=== PATIENT | female | born 1990 | race Caucasian/White ===

== ENCOUNTER 2019-10-21 10:02 | Emergency (ER) | payer OTHER, SELFPAY ==
[2019-10-21 10:56] VITALS: BP 108/69; PULSE 98; RESP 16; TEMP 37.4; O2SAT 99
--- NOTE | 2019-10-21 12:09 | ED.GENADULT ---
HPI - General Adult General Chief complaint: Upper Respiratory Infection Stated complaint: Cough/Congestion Time Seen by Provider: 10/21/19 12:09 Source: patient Mode of arrival: ambulatory Limitations: no limitations History of Present Illness HPI narrative: 28-year-old female patient presents to the [facility] with complaints of cold symptoms for the past 5 days. Patient states she has had fevers as high as 102 that she is no longer running at this time. Patient states she has had body aches, chills, runny nose, congestion. Patient states that her most bothersome symptom today is that she has had some cough and shortness of breath. Patient states that she did get a flu shot this year. Patient states that she is an active smoker of cigarettes. Patient states that there has been a lot of people at work that have been out recently because of the flu. Patient denies prior or breast-feeding at this time. Patient states she has been taking [id number] cough cold medication as well as some Robitussin without relief. Related Data Allergies Allergy/AdvReac Type Severity Reaction Status Date / Time No Known Allergies Allergy Verified 10/21/19 11:08 Review of Systems Review of Systems: Narrative: CONSTITUTIONAL: Positive subjective fever, body aches, chills, and sweats. EYES: Denies visual changes, redness, or discharge. ENT: Positive rhinorrhea, congestion, denies sore throat, or otalgia. CARDIOVASCULAR: Denies chest pain, palpitations, or edema. RESPIRATORY: Positive cough with dyspnea. GASTROINTESTINAL: Denies abdominal pain, nausea, vomiting, or diarrhea. GENITOURINARY: Denies dysuria or hematuria. SKIN: Denies rash or itching. MUSCULOSKELETAL: Denies back pain, joint pain, or myalgia. NEUROLOGIC: Denies headache, numbness, or weakness. PSYCHIATRIC: Denies anxiety or depression. PMFSH Comments At the time of my signature I agree with nursing past medical history, surgical, social, and family history. There is no relevant family history pertinent to the presenting complaint. Exam Narrative: Exam Narrative: GENERAL: ill-appearing, well-nourished, and in no acute distress. HEAD: Normocephalic, atraumatic. No tenderness noted to frontal maxillary sinuses on palpation. EYES: PERRLA and EOMI. ENT: Nares with erythema and edema noted bilaterally, no rhinorrhea or epistaxis. Mucous membranes moist. Posterior pharynx with no erythema, tonsillar margin, exudates or lesions present. Bilateral TMs are clear with no erythema or foreign bodies in the canal. NECK: Supple. No lymphadenopathy CHEST: Patient has some rhonchi wheezing noted to the upper lobes as well as some rhonchi noted to bilateral lower lobes on auscultation. No respiratory distress. Patient does have a continuous cough noted during exam. HEART: Regular rate and rhythm. No murmur heard. Normal peripheral pulses. ABDOMEN: Soft, nontender, nondistended, normal active bowel sounds. EXTREMITIES: Normal range of motion. No edema. SKIN: Warm, dry, no rash. NEURO: No focal deficits. Alert and oriented x3. Course Reevaluation(s) Reevaluation #1: Reevaluated patient after her DuoNeb was completed. Patient states she is feeling much better and feels like she can take a bigger deeper breath without coughing. Patient's lung sounds are clear to bilateral upper and lower lobes. Discussed with patient that we are going to discharge her today with an albuterol inhaler and oral steroids for the coughing and respiratory symptoms. Discussed with patient that she should take Tylenol and ibuprofen as needed for any body aches pains or fevers as well as [id number] antihistamines and nasal steroids for her other symptoms. Patient verbalized understanding denies any other questions or concerns. Date: 10/21/19 Time: 12:56 Vital Signs Vital signs: Vital Signs Temperature 37.4 C 10/21/19 10:56 Pulse Rate 98 10/21/19 10:56 Respiratory Rate 16 10/21/19 10:56 Blood Pr
[2019-10-21] MEDS: IPRATROPIUM BR 0.02% INH SOLN 0.5 MG/2.5 ML VIAL INHALATION (12:18)
[2019-10-21] MEDS: ALBUTEROL SULFATE NEB 2.5 MG/3 ML INH INHALATION (12:18)
[2019-10-21 12:40] VITALS: PULSE 88; RESP 14; O2SAT 99
== END 2019-10-21 13:00 | disposition home or self-care (01) ==
PROVIDERS: Emergency Provider Nurse Practitioner Family
DX: J06.9 Acute upper respiratory infection, unspecified (principal)
CPT/HCPCS: 94640; 99213; G0463

== ENCOUNTER 2021-05-13 12:05 | Emergency (ER) | payer OTHER, SELFPAY ==
[2021-05-13 12:15] VITALS: BP 116/77; PULSE 104; RESP 16; TEMP 37.3; O2SAT 100
[2021-05-13 12:17] VITALS: BP 116/77; PULSE 104; RESP 16; TEMP 37.3; O2SAT 100
--- NOTE | 2021-05-13 12:17 | ED.GENADULT ---
HPI - General Adult General Chief complaint: Unspecified Stated complaint: sharp pains under left breast Time Seen by Provider: 05/13/21 12:20 Source: patient and RN notes reviewed Mode of arrival: ambulatory Limitations: no limitations History of Present Illness HPI narrative: 30-year-old female presents with 4-day history of pain in the left breast area. Reports tenderness to touch. Denies warmth, redness, fever, body aches. Denies injury or trauma. Denies rash, open skin. Denies nipple discharge. She denies worsening pain with deep breathing or coughing. Pain is not made worse by bending, twisting, moving the left arm. She denies chest pain, shortness of breath, back pain, sweating. Denies intervention MD complaint: Chest wall pain Related Data Allergies Allergy/AdvReac Type Severity Reaction Status Date / Time No Known Allergies Allergy Verified 05/13/21 12:16 Review of Systems Review of Systems: CONSTITUTIONAL: Denies malaise, chills, sweats, or fever. CARDIOVASCULAR: Denies chest pain, palpitations, or edema. RESPIRATORY: Denies cough or dyspnea. GASTROINTESTINAL: Denies abdominal pain, nausea, vomiting, diarrhea SKIN: Denies rash or itching. Denies open skin, redness, bruising, swelling. Denies breast redness, warmth. MUSCULOSKELETAL: Denies back pain or myalgia. Reports left anterior chest wall pain, tender to touch. All systems reviewed & are unremarkable except as noted in HPI and below PMFSH Comments At time of signature, agree with nursing past medical, surgical, social and family history. There is no relevant family history pertinent to the presenting complaint Exam Narrative: GENERAL: Well-appearing, well-nourished, and in no acute distress. HEAD: Normocephalic, atraumatic. EYES: PERRLA, conjunctivae clear ENT: Mucous membranes moist. NECK: Supple. CHEST: No respiratory distress. Clear to auscultation. No bony deformities, no asymmetry. Speaks in full sentences. No breast tenderness. Tenderness when touching the in the anterior mid rib area beneath the left breast HEART: Regular rate and rhythm. No murmur heard. Normal peripheral pulses. SKIN: Warm, dry, no visible rash. No chest wall erythema, ecchymosis, open skin. NEURO: Alert and oriented x3. PSYCH: Normal mood and affect Course Course Emergency Course: Patient following up with primary care provider for further evaluation. Discussed potential for possible shingles, instructed patient for symptoms to monitor and return if rash develops. Patient is aware of diagnosis, understands and agrees to treatment plan. Anticipatory guidance given. Patient agrees to follow-up as directed and is aware of reasons to seek care at the emergency department. Portions of this record may have been created with voice recognition software Vital Signs Vital signs: Vital Signs Temperature 99.2 F 05/13/21 12:15 Pulse Rate 104 H 05/13/21 12:15 Respiratory Rate 16 05/13/21 12:15 Blood Pressure 116/77 05/13/21 12:15 Pulse Oximetry 100 05/13/21 12:15 Temperature 99.2 F 05/13/21 12:17 Pulse Rate 104 H 05/13/21 12:17 Respiratory Rate 16 05/13/21 12:17 Blood Pressure 116/77 05/13/21 12:17 Pulse Oximetry 100 05/13/21 12:17 Reviewed. Medical Decision Making MDM Narrative Medical decision making narrative: Exam findings show no acute concerns or changes; patient is non-toxic appearing and is in no distress. Patient is appropriate for outpatient treatment and follow-up. Differential Diagnosis Differential Diagnosis: Chest contusion, rib contusion, rib fracture, shingles, cardiac event, pneumonia, pleurisy, costochondritis, mastitis Vital Signs Vital Signs: Vital Signs Temperature 99.2 F 05/13/21 12:15 Pulse Rate 104 H 05/13/21 12:15 Respiratory Rate 16 05/13/21 12:15 Blood Pressure 116/77 05/13/21 12:15 Pulse Oximetry 100 05/13/21 12:15 Temperature 99.2 F 05/13/21 12:17 Pulse Rate 104 H 05/13/21 12:17 R
== END 2021-05-13 12:33 | disposition home or self-care (01) ==
PROVIDERS: Emergency Provider Nurse Practitioner
DX: R07.89 Other chest pain (principal)
CPT/HCPCS: 99213; G0463

== ENCOUNTER 2024-10-26 14:09 | Emergency (ER) | payer OTHER, SELFPAY ==
--- NOTE | ~2024-10-26 | XR_ITS ---
EXAMINATION: XR finger 3rd RT min 2V DATE: 10/26/2024 14:28 INDICATION: Pain at the right third proximal interphalangeal joint post injury TECHNIQUE: Dorsal palmar, lateral and 2 oblique views of the right third digit were obtained COMPARISON: None FINDINGS: Alignment is normal. No fracture. Joint spaces are normal. Soft tissue swelling about the third proxi mal interphalangeal joint. IMPRESSION: 1. No osseous abnormality. Reviewed, dictated and finalized at location B. RIAL SPREADER IMPRESSION: 1. No osseous abnormality.
[2024-10-26 14:23] VITALS: BP 109/73; PULSE 80; RESP 16; TEMP 36.8; O2SAT 100
--- NOTE | 2024-10-26 14:33 | ED_ITS ---
HPI - General Adult General Chief complaint: Extremity Injury, Upper Stated complaint: Finger Injury Source: patient Mode of arrival: ambulatory Limitations: no limitations History of Present Illness HPI narrative: Pt presents for evaluation of pain in the third digit of the right hand. Symptom onset this morning. She got her leg stuck in her bedding while getting up out of bed. She fell and hit her right hand against the ground in the process. I rash she experiences a pressure sensation in the 3rd digit. However she accidentally bumps the digit she has severe pain that she rates 10/10. She is right hand dominant. She tried taking tylenol for her symptoms. Related Data Allergies Allergy/AdvReac Type Severity Reaction Status Date / Time No Known Allergies Allergy Verified 05/13/21 12:16 Review of Systems Review of Systems: CONSTITUTIONAL: Denies fever, chills, or sweats. EYES: Denies visual changes, redness, or discharge. ENT: Denies rhinorrhea, congestion, sore throat, or otalgia. CARDIOVASCULAR: Denies chest pain, palpitations, or edema. RESPIRATORY: Denies cough or dyspnea. GASTROINTESTINAL: Denies abdominal pain, nausea, vomiting, or diarrhea. GENITOURINARY: Denies dysuria or hematuria. SKIN: Denies rash or itching. MUSCULOSKELETAL: Reports pain in the third digit of the right hand NEUROLOGIC: Denies headache, numbness, dizziness, or weakness. PSYCHIATRIC: Denies anxiety or depression. PMFSH Past Medical History Medical History No pertinent past medical history Surgical History Surgical History No pertinent past surgical history Family History Family History Mother Family history non-contributory Social History Social History Smoking status: Current every day smoker Tobacco type: e-cigarettes/vaping Gender identity (if verbalized by the patient): Female Spiritual care concerns: No Exam Narrative: GENERAL: Well-appearing, well-nourished, and in no acute distress. HEAD: Normocephalic, atraumatic. EYES: PERRLA and EOMI. ENT: Nares clear, no rhinorrhea or epistaxis. Mucous membranes moist. Oropharynx without tonsillar hypertrophy exudate or other lesions. Bilateral TMs pearly bateman nonbulging NECK: Supple. No adenopathy or masses. No carotid bruits or JVD CHEST: Clear to auscultation. No respiratory distress. No wheezes rales or rhonchi HEART: Regular rate and rhythm. No murmur heard. Normal peripheral pulses. ABDOMEN: Soft, nontender, nondistended, normal active bowel sounds. EXTREMITIES: 3/5 hand qualitative field coordinator strength on the right. 5/5 hand qualitative field coordinator strength on left. Tenderness present in proximal phalanx, PIP joint and middle phalanx of the 3rd digit of the right hand SKIN: Warm, dry, no rash. NEURO: No focal deficits. Alert and oriented x3. PSYCH: Normal mood and affect. Course Course Emergency Course: This is a 33 year old female who presented for pain in the 3rd digit of right hand. X ray was negative for fracture. Provided with finger splint. Advised on RICE therapy. NSAIDs for pain. Follow up with primary provider. Go to the ER for worsening symptoms. Pt in agreement with plan of care. Level of Care: Express Care Visit Vital Signs Vital signs: Vital Signs Temperature 36.8 C 10/26/24 14:23 Pulse Rate 80 10/26/24 14:23 Respiratory Rate 16 10/26/24 14:23 Blood Pressure 109/73 10/26/24 14:23 Pulse Oximetry 100 10/26/24 14:23 Oxygen Delivery Room Air 10/26/24 14:23 Temperature 36.8 C 10/26/24 14:23 Pulse Rate 80 10/26/24 14:23 Respiratory Rate 16 10/26/24 14:23 Blood Pressure 109/73 10/26/24 14:23 Pulse Oximetry 100 10/26/24 14:23 Oxygen Delivery Room Air 10/26/24 14:23 Medical Decision Making Vital Signs Vital Signs: Vital Signs Temperature 36.8 C 10/26/24 14:23 Pulse Rate 80 10/26/24 14:23 Respiratory Rate 16 10/26/24 14:23 Blood Pressure 109/73 10/26/24 14:23 Pulse Oximetry 100 10/26/24 14:23 Oxygen Delivery Room Air 10/26/24 14:23 Temperature 36.8 C 10/26/24 14:23 Pulse Rate 80 10/26/24 14:23 Respiratory Rate 16 10/26/24 14:23 Blood Pressure 109/73 10/26/24 14:23 Pulse Oximetry 100 10/26/24 14:23 Oxygen Delivery Room Air 10/26/24 14:23 Imaging Data Radiologist's impression: EXAMINATION: XR finger 3rd RT min 2V DATE: 10/26/2024 14:28 INDICATION: Pain at the right third proximal interphalangeal joint post injury TECHNIQUE: Dorsal palmar, lateral and 2 oblique views of the right third digit were obtained COMPARISON: None FINDINGS: Alignment is normal. No fracture. Joint spaces are normal. Soft tissue swelling about the third proximal interphalangeal joint. IMPRESSION: 1. No osseous abnormality. Discharge Plan Discharge Clinical Impression: Contusion of right middle finger Patient Disposition: Home, Self-Care Condition: Stable Instructions: Antibiotic Form, Contusion in Adults (ED) Patient Language: Bengali Prescriptions: No Action ibuprofen 800 mg tablet 800 mg PO Q6H PRN (Reason: pain) Qty: 30 0RF albuterol sulfate [Ventolin HFA] 90 mcg/actuation HFA aerosol inhaler 2 puff INHALATION .Q4 hours PRN (Reason: cough) Qty: 18 0RF Follow-up/Referrals: Georgia Fraga DO [Physician] - Time of Disposition: 14:53
--- OUTSIDE RECORDS SUMMARY | 2024-10-26 16:21 | XMS_ITS | Clinical Summary ---
Author Organization [facility] Address [address] [place] [address] Care Team Providers Care Folder Hand Name Role Phone Unknown, Notinfile Primary Care Provider Unavail able Allergies No known active allergies Medications ibuprofen (ADVIL,MOTRIN) 600 mg tablet Take 1 tablet (600 mg total) by mouth every 6 (six) hours as needed 0 05/22/2018 Active HYDROcodone-eduardo taminophen (NORCO) 5-325 mg per tabletIndicatio ns:Pain Take 1-2 tablets by mouth every 4 (four) hours as needed for pain. 28 tablet 07/02/2018 Active ibuprofen (ADVIL,MOTRIN) 600 mg tablet Take 1 tablet (600 mg total) by mouth every 6 (six) hours as needed for pain. 30 tablet 2 07/02/2018 Active Active Problems No known active problems Social History Tobacco Use Types Packs/Day Years Used Date Smoking Tobacco: Every Day Cigarettes Smokeless Tobacco: Never Tobacco Cessation:Ready to Q uit: Yes; Counseling Given: Yes Alcohol Use Standard Drinks/Week Comments No 0 (1 standard drink = 0.6 oz pur e alcohol) Comments No Sex and Gender Information Value Date Recorded Sex Assigned at Not on file Legal Sex Female 7:20 PM [employer] Gender Identity Not on file Sexual Orientation Not on file Obstetrics History Last Filed Vital Signs Vital Sign Reading Time Taken Comments Blood Pressure 134/83 04/12/2024 3:24 PM CDT Pulse 61 04/12/2024 3:24 PM CDT Temperature 38.7 C (101.7 F) 07/04/2022 4:27 PM CDT Respiratory Rate 24 07/04/2022 4:30 PM CDT Oxygen Saturation 100% 07/04/2022 4:27 PM CDT Inhaled Oxygen Concentration - - Weight 74.4 kg (164 lb) 04/12/2024 3:24 PM CDT Height 167.6 cm (5' 6 ) 04/12/2024 3:24 PM CDT Body Mass Index 26.47 04/12/2024 3:24 PM CDT Plan of Treatment Health Maintenance Due Date Last Done Comments Cervical Cancer Screening 1991 Depression Screening 1991 Hepatitis C Screening 1991 Varicella Vaccines (1 of 2 - 13+ 2-dose series) 12/14/2004 Hepatitis B Screening 12/14/2009 Regular Well Visit/Exam 18-64 12/14/2009 Pneumococcal vaccine <65 (2 of 2 - PCV) 02/02/2015 02/02/2014 DTaP/Tdap/Td Vaccine (2 - Td or Tdap) 02/01/2024 01/31/2014 Influenza Vaccine (#1) 2024 HPV Vaccines Aged Out No longer eligi ble based on patient's age to complete this topic Insurance [facility] Care Teams Folder Hand Relationship Specialty Start Date End Date Unknown, Notinfile PCP - General 04/07/24
--- OUTSIDE RECORDS SUMMARY | 2024-10-26 16:21 | XMS_ITS | Referral Summary ---
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
== END 2024-10-26 14:57 | disposition home or self-care (01) ==
PROVIDERS: Emergency Provider Nurse Practitioner
DX: S60.031A Contusion of right middle finger without damage to nail, initial encounter (principal); W01.0XXA Fall on same level from slipping, tripping and stumbling without subsequent striking against object, initial encounter
CPT/HCPCS: 29130; 73140; 99213; G0463

== ENCOUNTER 2025-01-25 17:46 | Emergency (ER) | payer OTHER, SELFPAY ==
--- NOTE | ~2025-01-25 | XR_ITS ---
XR finger 3rd RT min 2V Ordering provider: Derrick Nagy APRN History: . finger swelling/pain . Comparison: None. FINDINGS: BONES: No acute fracture or dislocation. JOINT SPACES: Normal. SOFT TISSUES: Normal. IMPRESSION: No definite acute osseous abnormality. Reviewed, dictated and finalized at location A.
--- OUTSIDE RECORDS SUMMARY | 2025-01-25 17:49 | XMS_ITS | Clinical Summary ---
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 Care Teams Councillor [employer] Relationship Specialty Start Date End Date Unknown, Notinfile PCP - General 04/07/24
--- OUTSIDE RECORDS SUMMARY | 2025-01-25 17:49 | XMS_ITS | Referral Summary ---
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
[2025-01-25 17:52] VITALS: BP 136/87; PULSE 67; RESP 20; TEMP 36.7; O2SAT 100
--- NOTE | 2025-01-25 18:01 | ED.UPPEXIN ---
HPI - Extremity Injury (Upper) General Chief Complaint: Extremity Injury, Upper Stated Complaint: rt middle finger pain Time Seen by Provider: 01/25/25 18:00 Source: patient Mode of arrival: ambulatory Limitations: no limitations History of Present Illness HPI narrative: Tara is a 34-year-old female patient presenting to the clinic today with complaints of right 3rd finger pain. She reports she injured her finger when she fell approximately 8 weeks ago and thought she jammed the finger. Was seen the day after she fell and an x-ray was completed and was negative. Is reporting pain to the radial side of the PIP joint Related Data Allergies Allergy/AdvReac Type Severity Reaction Status Date / Time No Known Allergies Allergy Verified 05/13/21 12:16 Review of Systems Review of Systems: Pertinent positives per HPI. Patient denies any fever, chills, rash, headache, visual changes, dizziness, cough, runny nose, sore throat, shortness of breath, chest pain, palpitations, nausea, vomiting, diarrhea, constipation, abdominal pain, or any urinary issues. PMFSH Past Medical History Medical History No pertinent past medical history Surgical History Surgical History No pertinent past surgical history Family History Family History Mother Family history non-contributory Social History Social History Smoking status: Current every day smoker Tobacco type: e-cigarettes/vaping Gender identity (if verbalized by the patient): Female Spiritual care concerns: No Comments At the time of my signature, I reviewed and agree with the nursing past medical, surgical, social, and family history. There is no relevant family history pertinent to the patient complaint. Exam Narrative: General: Well-developed, well nourished, in no apparent distress Head: Normocephalic, atraumatic. Cardio: Regular rate and rhythm, s1 and s2 normal, no murmur appreciated. Resp: Clear to auscultation bilaterally, no rhonchi, rales, wheezing or rubs. Musculoskeletal: No deformity, mild swelling noted to the PIP joint of the right 3rd finger, tender to palpation over the lateral aspect of the right 3rd PIP joint, grossly normal range of motion, muscle strength strong and equal, peripheral pulse strong, no edema, no cyanosis, normal gait and station Course Course Emergency Course: Portions of this record may have been created with voice recognition software. Level of Care: Express Care Visit Vital Signs Vital signs: Vital Signs Temperature 36.7 C 01/25/25 17:52 Pulse Rate 67 01/25/25 17:52 Respiratory Rate 20 01/25/25 17:52 Blood Pressure 136/87 01/25/25 17:52 Pulse Oximetry 100 01/25/25 17:52 Oxygen Delivery Room Air 01/25/25 17:52 Temperature 36.7 C 01/25/25 17:52 Pulse Rate 67 01/25/25 17:52 Respiratory Rate 20 01/25/25 17:52 Blood Pressure 136/87 01/25/25 17:52 Pulse Oximetry 100 01/25/25 17:52 Oxygen Delivery Room Air 01/25/25 17:52 Vital signs reviewed MDM - Extremity Injury (Upper) MDM Narrative Medical decision making narrative: At the time of visit patient is resting comfortably on the exam table. Patient appears to be nontoxic. Diagnostics: X-ray of the right 3rd finger was performed and was negative for any acute fracture or malalignment. Plan: I suspect patient has right finger pain-status post fall injury Supportive measures were discussed with the patient and they voiced understanding discharge instructions and agrees to treatment plan. Return precautions reviewed Differential Diagnosis Differential diagnosis: Likely finger sprain, dislocation of finger and other (Finger fracture, tendon injury) Imaging Data Radiologist's impression: ITS Impressions Finger X-Ray 01/25/25 18:14 IMPRESSION: No definite acute osseous abnormality. Discharge Plan Discharge Clinical Impression: Finger pain, right Patient Disposition: Home Condition: Stable Instructions: Antibiotic Form, Finger Sprain (ED), Swollen Joint (ED) Additional Instructions: X-rays negative for any definitive acute osseous abnormality Rest, ice, and elevate Tylenol/motrin for pain as discussed. Follow up with your PCP if symptoms persist more than 1 week. Patient Language: Omani Follow-up/Referrals: aMureen Sotomayor MD [Physician] - 1 Day (Right 3rd finger lateral PIP joint pain-injured approximately 8 weeks ago-no acute fracture) PHYSICIAN,OVERLOCK SLEEVE SETTER [Primary Care Provider] - Time of Disposition: 18:25 Quality NIHSS Nursing Documentation ED NIHSS nursing documentation: reviewed/agree
== END 2025-01-25 18:30 | disposition home or self-care (01) ==
PROVIDERS: Emergency Provider Nurse Practitioner Family
DX: M79.644 Pain in right finger(s) (principal); F17.290 Nicotine dependence, other tobacco product, uncomplicated
CPT/HCPCS: 73140; 99213; G0463

== ENCOUNTER 2025-06-09 19:31 | Emergency (ER) | payer OTHER, SELFPAY ==
--- NOTE | 2025-06-09 19:32 | ED.URI ---
HPI - URI/Sore Throat General Chief Complaint: Upper Respiratory Infection Stated Complaint: throat Time Seen by Provider: 06/09/25 19:48 Source: patient, RN notes reviewed and old records reviewed Mode of arrival: ambulatory Limitations: no limitations History of Present Illness HPI Narrative: 34-year-old female presents to the [facility] with a sore throat that started today. Started not feeling well yesterday. Had taken some Tylenol and ibuprofen. Has had some sinus drainage, postnasal drainage. Related Data Home Medications ?Medication ?Instructions ?Recorded ?Confirmed ?Last Taken ?Type No Home Medications 06/09/25 06/09/25 Unknown History Allergies Allergy/AdvReac Type Severity Reaction Status Date / Time No Known Allergies Allergy Verified 06/09/25 19:36 Review of Systems Review of Systems: All systems reviewed & are unremarkable except as noted in HPI and below Constitutional: Constitutional: Reports no additional constitutional complaints ENT: Reports as per HPI Cardiovascular: Cardiovascular: Reports no additional cardiovascular complaints, Denies chest pain and Denies dyspnea Respiratory: Respiratory: Reports no additional respiratory complaints, Denies chest congestion, Denies cough and Denies dyspnea Musculoskeletal: Musculoskeletal: Reports no additional musculoskeletal complaints Integumentary/Breasts: Skin/Breast: Reports system reviewed and no additional complaints, except as docu PMFSH Past Medical History Medical History No pertinent past medical history Surgical History Surgical History No pertinent past surgical history Family History Family History Mother Family history non-contributory Social History Social History Smoking status: Current every day smoker Tobacco type: e-cigarettes/vaping Gender identity (if verbalized by the patient): Female Spiritual care concerns: No Comments At the time of my signature, I reviewed and agree with the nursing past medical, surgical, social, and family history. There is no relevant family history pertinent to the patient complaint. Exam Const: General: cooperative, healthy appearing, comfortable, no acute distress, well developed, alert and well nourished Nutritional Appearance: well nourished Orientation/consciousness: patient oriented x3 Limitations: no limitations HENMT: Head: normal to inspection Ears: hearing grossly normal bilaterally, external ears normal, TM's normal bilaterally, EAC's normal, mastoids normal and no periauricular adenopathy Face and sinus: normal facial exam, sinuses nontender and face symmetric Mouth: Yes Normal oral and palatal mucosa present, Yes lip normal, Yes tongue normal and Yes moist mucous membranes abnormal Throat: posterior oropharynx normal, uvula midline and no uvular edema Eyes: General: appearance normal, both eyes and all related structures Alignment and Position: alignment normal Neck: Neck: normal visual inspection, full ROM, no lymphadenopathy and no meningeal signs Chest: Chest palpation & inspection: normal inspection of the chest Resp: Effort & Inspection: normal respiratory effort and able to speak in complete sentences Auscultation: clear to auscultation bilaterally, no crackles, no rales, no rhonchi and no wheezes Cardio: Rate: regular rate Skin: General skin exam: normal color and no rashes or lesions noted Neuro: General: patient oriented x3, gait normal, moves all extremities and no meningeal signs Cognition (Neuro): normal cognition Speech: normal speech Gait exam (Neuro): Normal gait present Extrem: General: normal to inspection, full ROM, capillary refill normal and normal gait Psych: Appearance: grossly normal and well kempt Mental Status: mental status grossly normal Speech and movement: Normal speech and movement present and Clear speech present Affect: normal affect Attitude: cooperative Course Course Level of Care: Express Care Visit Vital Signs Vital signs: Vital Signs Temperature 97.8 F 06/09/25 19:41 Pulse Rate 89 06/09/25 19:41 Respiratory Rate 18 06/09/25 19:41 Blood Pressure 126/77 06/09/25 19:41 Pulse Oximetry 100 06/09/25 19:41 Oxygen Delivery Room Air 06/09/25 19:41 Temperature 97.8 F 06/09/25 19:41 Pulse Rate 89 06/09/25 19:41 Respiratory Rate 18 06/09/25 19:41 Blood Pressure 126/77 06/09/25 19:41 Pulse Oximetry 100 06/09/25 19:41 Oxygen Delivery Room Air 06/09/25 19:41 Reviewed MDM - URI/Sore Throat MDM Narrative Medical decision making narrative: Patient sitting in exam room. Patient is nontoxic vitals stable. Patient presents for sore throat since this morning. Strep test is negative, will culture. Patient appropriate for outpatient treatment with close follow-up Discharge instructions reviewed with patient, as well as provided in writing per nursing staff. The instructions also include specific and strict return/GO TO THE ER as well as f/u information. All questions have been answered, and the patient deny any further questions with discharge and discharge plan. Some parts of this dictation were generated by voice recognition software and may contain typographical and/or grammatical inaccuracies. Differential Diagnosis Differential diagnosis: Likely upper respiratory infection, otitis media, sinusitis, viral infection, bronchitis, influenza and pharyngitis Lab Data Labs: Lab Results 06/09/25 Range/Units 19:51 POC Grp A Strep Screen Negative (Negative) Reviewed Critical Care Time Critical Care Time Critical Care Time: No Discharge Plan Discharge Clinical Impression: Pharyngitis, PND (post-nasal drip) Patient Disposition: Home Condition: Stable Instructions: Antibiotic Form, Pharyngitis (ED), Postnasal Drip (DC) Additional Instructions: Your rapid strep swab was negative today at [facility]. A throat culture will be sent to the laboratory for further testing. If the test is positive, you will receive a phone call within 48 hours and an appropriate antibiotic will be initiated at that time. It is very important to treat your symptoms. Drink plenty of water, Gatorade, Pedialyte, ice pops or Jell-O. -Alternate Tylenol and Motrin per package directions for fever or pain. You can alternate every 4 hours -Antihistamine medication such as Zyrtec/Claritin/Nena during the day can help improve symptoms. -doing daily nasal irrigations can help relieve pressure your sinuses. Things like a Neti pot -Use Flonase twice a day for 5 days then daily to help reduce the inflammation and dry up your sinuses. -You can also use Mucinex. Be sure to drink plenty of water with this medication at least 8 ounces with every dose and it is important to drink 8 to 10 glasses of water per day. Water is a natural decongestant -Eat and drink things that are easy to swallow, like tea or soup, or popsicles. -Oral rinses such as: Salt water gargles and/or may use topical anesthetic (eg. Chloraseptic spray) or lozenges to relieve dryness or throat pain). -Frequent hand washing or hand site safety coordinator is one of the best ways to prevent spread of infection. -Using a vaporizer or humidifier at night will also help thin secretions and help with coughing up phlegm. -Follow up with primary care provider in 7-10 days if condition is not improving - For new or worsening symptoms go directly to the nearest ER Patient Language: [place] Prescriptions: No Action No Home Medications Follow-up/Referrals: UNKNOWN,DOCTOR [Non-Staff] Stand Alone Forms: Work/School Release IP Time of Disposition: 19:55
[2025-06-09 19:41] VITALS: BP 126/77; PULSE 89; RESP 18; TEMP 36.6; O2SAT 100
[2025-06-09 19:53] LABS: EDSTREPNEGPOS1 Negative (Negative)
== END 2025-06-09 20:01 | disposition home or self-care (01) ==
PROVIDERS: Emergency Provider Nurse Practitioner
DX: J02.9 Acute pharyngitis, unspecified (principal); R09.82 Postnasal drip; F17.290 Nicotine dependence, other tobacco product, uncomplicated
CPT/HCPCS: 87081; 87880; 99213; G0463